=== PATIENT | female | born 2005 | race Caucasian/White ===

== ENCOUNTER 2025-08-13 18:10 | Emergency (ER) | payer OTHER ==
[2025-08-13 18:54] VITALS: BP 111/77; PULSE 78; RESP 18; TEMP 98.1; BMI 26.6
[2025-08-13 19:40] LABS: HCG,QUALITATIVE URINE Negative
[2025-08-13] MEDS ORDERED: KETOROLAC TROMETHAMINE 30 MG/1 ML VIAL ONE (21:24)
[2025-08-13] MEDS: KETOROLAC TROMETHAMINE 30 MG/1 ML VIAL IM ONE (21:28)
== END 2025-08-13 21:32 | disposition home or self-care (01) ==
LOC: FER 18:10
PROC: 3E0333Z Introduction of Anti-inflammatory into Peripheral Vein, Percutaneous Approach (ICD-10-PCS; principal; 2025-08-13)
DX: M62.830 Muscle spasm of back (principal)
CPT/HCPCS: 71046-TC-FY; 81003; 81015; 84703; 96372; 99284-25